=== PATIENT | female | born 1990 | race Caucasian/White ===

== ENCOUNTER 2017-11-09 16:51 | Emergency (ER) | payer OTHER ==
[2017-11-09] MEDS: IBUPROFEN 600 MG TAB PO (20:36)
[2017-11-09] MEDS: ACETAMINOPHEN 325 MG TAB PO (20:36)
== END 2017-11-09 21:55 | disposition home or self-care (01) ==
LOC: FTE 16:51
DX: J03.90 Acute tonsillitis, unspecified (principal)
CPT/HCPCS: 99284; Z7502